=== PATIENT | male | born 1960 | race Two or more races ===

== ENCOUNTER 2018-02-14 19:08 | Inpatient (IN) | payer BC ==
--- NOTE | 2018-02-14 20:00 | ED Physician Chart ---
ED Chief Complaint/HPI - Patient Information Date Seen:: 02/14/18 Time Seen:: 19:53 Chief Complaint:: Abdominal pain History of Present Illness:: 57 yo male developed LLQ abdominal pain 3 weeks ago. Patient went to outside ER and was given oral antibiotics for 1 week. The abdominal pain went away. About 2 days ago, patient started to have similar LLQ abdominal pain again. Patient denied fever, nausea, vomiting, diarrhea or bloody stool. Patient presented to ER due to worsening abdominal pain today. Allergies:: Allergies Allergy/AdvReac Type Severity Reaction Status Date / Time No Known Allergies Allergy Verified 02/14/18 19:30 Vitals:: Vital Signs - 8 hr 02/14/18 19:10 Temp 97.8 F HR 61 RR 18 BP 161/107 O2 Sat % 95 ED Review of Systems - Review of Systems General/Constitutional: No fever, No chills Skin: No rash Head: No headache Eyes: No pain ENT: No nasal drainage Neck: No neck pain Cardio Vascular: No chest pain Pulmonary: No SOB GI: No nausea, No vomiting, No diarrhea, Pain Musculoskeletal: No bone or joint pain Neurological: No focal symptoms ED Past Medical History - Past Medical History Past Medical History: DM (pre-DM) Social History: Non Smoker, No Alcohol, No Drug Use Surgical History: None Family Medical History - Family Member Father Other Medical History: HIGH CHOLESTEROL ED Physical Exam - Physical Examination General/Constitutional: Awake Head: Atraumatic Eyes: PERRL Skin: No skin lesions ENMT: Nasal exam nl Neck: No nuchal rigidity Respiratory: No Wheeze/Rhonchi/Rales Cardio Vascular: RRR, No murmur, gallop, rubs, NL S1 S2 GI: Nondistended, No mass/bruits Other GI comments:: LLQ tenderness Extremities: normal strength in all extremities Neuro/Psych: No focal deficits ED Labs/Radiology/EKG Results - Lab Results Results: Laboratory Last Values WBC 11.7 Th/cmm (4.8-10.8) H 02/14/18 20:07 RBC 4.56 Mil/cmm (4.30-5.70) 02/14/18 20:07 Hgb 12.9 gm/dL (12-16) 02/14/18 20:07 Hct 38.8 % (41.0-60) L 02/14/18 20:07 MCV 85.2 fl (80-99) 02/14/18 20:07 MCH 28.4 pg (26.0-30.0) 02/14/18 20:07 MCHC Differential 33.3 pg (28.0-36.0) 02/14/18 20:07 RDW 12.9 % (11.5-20.0) 02/14/18 20:07 Plt Count 278 Th/cmm (150-400) 02/14/18 20:07 MPV 7.2 fl 02/14/18 20:07 Neutrophils % 64.2 % (40.0-80.0) 02/14/18 20:07 Lymphocytes % 22.1 % (20.0-50.0) 02/14/18 20:07 Monocytes % 8.4 % (2.0-10.0) 02/14/18 20:07 Eosinophils % 1.5 % (0.0-5.0) 02/14/18 20:07 Basophils % 3.8 % (0.0-2.0) H 02/14/18 20:07 Sodium 136 mEq/L (136-145) 02/14/18 20:07 Potassium 4.0 mEq/L (3.5-5.1) 02/14/18 20:07 Chloride 103 mEq/L (98-107) 02/14/18 20:07 Carbon Dioxide 24.5 mEq/L (21.0-31.0) 02/14/18 20:07 Anion Gap 12.5 (7.0-16.0) 02/14/18 20:07 BUN 22 mg/dL (7-25) 02/14/18 20:07 Creatinine 1.0 mg/dL (0.7-1.3) 02/14/18 20:07 Est GFR ( Amer) > 60.0 ml/min (>90) 02/14/18 20:07 Est GFR (Non-Af Amer) > 60.0 ml/min 02/14/18 20:07 BUN/Creatinine Ratio 22.0 02/14/18 20:07 Glucose 116 mg/dL (70-105) H 02/14/18 20:07 Calcium 9.4 mg/dL (8.6-10.3) 02/14/18 20:07 Total Bilirubin 0.6 mg/dL (0.3-1.0) 02/14/18 20:07 AST 24 U/L (13-39) 02/14/18 20:07 ALT 35 U/L (7-52) 02/14/18 20:07 Alkaline Phosphatase 86 U/L (34-104) 02/14/18 20:07 Total Protein 6.9 gm/dL (6.0-8.3) 02/14/18 20:07 Albumin 4.0 gm/dL (4.2-5.5) L 02/14/18 20:07 Globulin 2.9 gm/dL 02/14/18 20:07 Albumin/Globulin Ratio 1.4 (1.0-1.8) 02/14/18 20:07 Amylase 50 U/L (29-103) 02/14/18 20:07 Lipase 24 U/L (11-82) 02/14/18 20:07 Urine Source CLEAN C 02/14/18 19:30 Urine Color YELLOW 02/14/18 19:30 Urine Clarity CLEAR (CLEAR) 02/14/18 19:30 Urine pH 6.0 (4.6 - 8.0) 02/14/18 19:30 Ur Specific [place] >= 1.030 (1.005-1.030) 02/14/18 19:30 Urine Protein TRACE mg/dL (NEGATIVE) 02/14/18 19:30 Urine Glucose (UA) NEGATIVE mg/dL (NEGATIVE) 02/14/18 19:30 Urine Ketones TRACE mg/dL (NEGATIVE) 02/14/18 19:30 Urine Blood TRACE (NEGATIVE) 02/14/18 19:30 Urine Nitrate NEGATIVE (NEGATIVE) 02/14/18 19:30 Urine Bilirubin SMALL (NEGATIVE) H 02/14/18 19:30 Urine Urobilinogen 0.2 E.U./dL (0.2 - 1.0) 02/14/18 19:30 Ur Leukocyte Esterase NEGATIVE (NEGATIVE) 02/14/18 19:30 Urine RBC 2-5 /hpf (0-5) H 02/14/18 19:30 Urine WBC 0-2 /hpf (0-5) 02/14/18 19:30 Ur Epithelial Cells FEW /lpf (FEW) 02/14/18 19:30 Amorphous Sediment MODERATE URATES (NONE SEEN) 02/14/18 19:30 Urine Bacteria FEW /hpf (NONE SEEN) 02/14/18 19:30 - Radiology Results Results: CT abdomen/pelvis with IV contrast: sigmoid colon diverticulosis with inflammatory changes, trace surrounding fluid, 4.1x2.9x4.0 cm peridiverticular abscess in the left pelvis - EKG Interpretations EKG Time:: 20:23 Rate & Rhythm: 54 bpm, sinus rhythm [place]: normal P axis Intervals: [place] 208, QRS 103 Comments:: Left axis deviation, no ST, T changes, borderline EKG ED Assessment - Assessment General Assessment: Diverticulitis Peridiverticular abscess Leukocytosis Hypertension Assessment/Comments:: CBC, CMP, lipase, amylase, UA CT abdomen/pelvis with IV contrast Zosyn Flagyl NS 1L IV bolus Admit to med surg for further evaluation and management ED Septic Shock - . Is Septic Shock (SBP<90, OR Lactate>4 mmol\L) present?: No - <6hrs of presentation: Vital Signs: Vital Signs - 8 hr 02/14/18 19:10 Temp 97.8 F HR 61 RR 18 BP 161/107 O2 Sat % 95 ED Reassessment (Disposition) - Reassessment Reassessment Condition:: Improved - Patient Disposition Discharge/Transfer:: Acute Care w/in this hosp Admitting Medical Physician:: Cristhian Walker
[2018-02-14 20:15] LABS: % BASOPHILS 3.8 % (0.0-2.0); % EOSINOPHILS 1.5 % (0.0-5.0); % LYMPHOCYTES 22.1 % (20.0-50.0); % MONOCYTES 8.4 % (2.0-10.0); % NEUTROPHILS 64.2 % (40.0-80.0); BASOPHILE ABSOLUTE 0.4 Th/cumm (0-0.2); EOSINOPHILE ABSOLUTE 0.2 Th/cmm (0.1-0.4); HEMATOCRIT 38.8 % (41.0-60); HEMOGLOBIN 12.9 gm/dL (12-16); LYMPHOCYTE ABSOLUTE 2.6 Th/cmm (1.5-3.0); MEAN CELL VOLUME 85.2 fl (80-99); MEAN CORPUSCULAR HEMOGLOBIN 28.4 pg (26.0-30.0); MEAN CORPUSCULAR HGB CONC 33.3 pg (28.0-36.0); MEAN PLATELET VOLUME 7.2 fl; NEUTROPHILE ABSOLUTE 7.5 Th/cmm (1.8-8.0); PLATELET COUNT 278 Th/cmm (150-400); RED BLOOD COUNT 4.56 Mil/cmm (4.30-5.70); RED CELL DISTRIBUTION WIDTH 12.9 % (11.5-20.0); WHITE BLOOD COUNT 11.7 Th/cmm (4.8-10.8)
[2018-02-14 20:23] LABS: URINE SOURCE CLEAN C
[2018-02-14 20:27] LABS: URINE BILIRUBIN SMALL (NEGATIVE); URINE BLOOD TRACE (NEGATIVE); URINE GLUCOSE (UA) NEGATIVE (NEGATIVE); URINE KETONE TRACE mg/dL (NEGATIVE); URINE LEUKOCYTE ESTERASE NEGATIVE (NEGATIVE); URINE MICROSCOPIC INDICATED? YES; URINE NITRATE NEGATIVE (NEGATIVE); URINE PROTEIN TRACE mg/dL (NEGATIVE); URINE UROBILINOGEN 0.2 E.U./dL (0.2 - 1.0)
[2018-02-14 20:28] LABS: URINE CLARITY CLEAR (CLEAR); URINE COLOR YELLOW
[2018-02-14 20:30] LABS: URINE BACTERIA FEW /hpf (NONE SEEN); URINE EPITHELIAL CELLS FEW /lpf (FEW); URINE WBC 0-2 /hpf (0-5)
[2018-02-14 20:31] LABS: URINE AMORPHOUS SEDIMENT MODERATE URATES (NONE SEEN)
[2018-02-14 21:16] LABS: AMYLASE SERUM 50 U/L (29-103); LIPASE 24 U/L (11-82)
[2018-02-14 21:21] LABS: ALB/GLOB RATIO 1.4 (1.0-1.8); ALKALINE PHOSPHATASE 86 U/L (34-104); ANION GAP 12.5 (7.0-16.0); BILIRUBIN,TOTAL 0.6 mg/dL (0.3-1.0); BUN - UREA NITROGEN 22 mg/dL (7-25); CALCIUM SERUM 9.4 mg/dL (8.6-10.3); CARBON DIOXIDE 24.5 mEq/L (21.0-31.0); CHLORIDE 103 mEq/L (98-107); GFR AFRICAN-AMERICAN > 60.0 ml/min (>90); GFR NON AFRICAN-AMERICAN > 60.0 ml/min; GLUCOSE 116 mg/dL (70-105); SGOT 24 U/L (13-39); SGPT/ALT 35 U/L (7-52); SODIUM SERUM 136 mEq/L (136-145); TOTAL PROTEIN,SERUM 6.9 gm/dL (6.0-8.3)
[2018-02-14] MEDS ORDERED: IOHEXOL 300mgI/mL 100 ML VIAL ONE (21:38)
[2018-02-14] MEDS ORDERED: metroNIDAZOLE 500mg/NS 100mL 500 MG/100 ML BAG IV ONE ×2 (22:07→22:24)
[2018-02-14] MEDS ORDERED: Piperacillin Sodium/Tazobact 3.375 gm Vial IV ONE (22:24)
[2018-02-14] MEDS ORDERED: Sodium Chloride 0.9% 1,000 ML IV ONE (22:45)
[2018-02-14 23:47] LABS: INR 0.99 (0.5-1.4); PROTHROMBIN TIME (TEST) 10.3 SECONDS (9.5-11.5)
[2018-02-15 01:21] VITALS: BP 132/87
[2018-02-15] MEDS: D5-0.45NS 1,000 ML IV SCH (01:25)
[2018-02-15] MEDS ORDERED: Piperacillin Sodium/Tazobact 3.375 gm Vial IV ONE (04:33)
[2018-02-15] MEDS: Morphine Sulfate 2 mg/mL 1mL Syr IVP PRN ×2 (04:49→12:16)
[2018-02-15] MEDS: metroNIDAZOLE 500mg/NS 100mL 500 MG/100 ML BAG IV SCH ×3 (05:40→21:08)
[2018-02-15 06:33] LABS: % BASOPHILS 0.3 % (0.0-2.0); % EOSINOPHILS 1.4 % (0.0-5.0); % LYMPHOCYTES 13.7 % (20.0-50.0); % MONOCYTES 8.2 % (2.0-10.0); % NEUTROPHILS 76.4 % (40.0-80.0); EOSINOPHILE ABSOLUTE 0.1 Th/cmm (0.1-0.4); HEMOGLOBIN 12.6 gm/dL (12-16); LYMPHOCYTE ABSOLUTE 1.4 Th/cmm (1.5-3.0); MEAN CELL VOLUME 85.1 fl (80-99); MEAN CORPUSCULAR HEMOGLOBIN 29.1 pg (26.0-30.0); MEAN CORPUSCULAR HGB CONC 34.2 pg (28.0-36.0); MEAN PLATELET VOLUME 7.6 fl; MONOCYTE ABSOLUTE 0.9 Th/cmm (0.3-1.0); PLATELET COUNT 260 Th/cmm (150-400); RED BLOOD COUNT 4.35 Mil/cmm (4.30-5.70); RED CELL DISTRIBUTION WIDTH 12.9 % (11.5-20.0); WHITE BLOOD COUNT 10.4 Th/cmm (4.8-10.8)
[2018-02-15 06:45] LABS: ALB/GLOB RATIO 1.3 (1.0-1.8); ALBUMIN 3.6 gm/dL (4.2-5.5); ALKALINE PHOSPHATASE 79 U/L (34-104); BILIRUBIN,TOTAL 0.8 mg/dL (0.3-1.0); BUN - UREA NITROGEN 15 mg/dL (7-25); CALCIUM SERUM 8.9 mg/dL (8.6-10.3); CARBON DIOXIDE 24.6 mEq/L (21.0-31.0); CHLORIDE 105 mEq/L (98-107); CREATININE - SERUM 0.8 mg/dL (0.7-1.3); GFR AFRICAN-AMERICAN > 60.0 ml/min (>90); GFR NON AFRICAN-AMERICAN > 60.0 ml/min; GLUCOSE 110 mg/dL (70-105); POTASSIUM SERUM 3.6 mEq/L (3.5-5.1); SGOT 20 U/L (13-39); SGPT/ALT 32 U/L (7-52); SODIUM SERUM 137 mEq/L (136-145); TOTAL PROTEIN,SERUM 6.3 gm/dL (6.0-8.3)
--- NOTE | 2018-02-15 07:49 | Diagnostic Imaging Report ---
CT scan abdomen and pelvis with intravenous contrast HISTORY: Pain Total DLP equals 645 CTDI equals 12.7 Axial sections were obtained from the xiphoid process down to the pubic symphysis following administration of intravenous contrast. No focal hepatic lesions are seen. The spleen appears normal. No abnormalities are seen in the region of the pancreas. Right kidney appears normal. A subcentimeter cyst seen in the lateral cortex of the left kidney. There is a minimal fat-containing umbilical hernia. The exam of the pelvis demonstrates numerous diverticula along the sigmoid colon with haziness of the pericolonic fat. Findings consistent with inflammatory change (diverticulitis). There is an approximate 4.0 cm round collection associated with a small air-fluid level. Findings suggest abscess formation. No other abnormal masses. No free fluid within the pelvis. IMPRESSION: 1. Findings consistent with diverticulitis along the sigmoid colon associated with small abscess formation as noted above. 2. Minimal fat-containing umbilical hernia
--- NOTE | 2018-02-15 08:23 | History and Physical ---
History of Present Illness - HPI Chief Complaint: LLQ abdominal Pain HPI: 57 yo male who presents to [facility] ER with LLQ abdominal pain for 3 weeks. Patient underwent a CT abd/pelvis which revealed evidence of diverticulitis and possible abscess formation adjacent to the sigmoid colon. Patient was subsequently admitted for continued care and treatment. Abdominal pain has been coming and going for the past 3 weeks. Recently his pain return 2 days prior to admission with pain to the LLQ region. Patient denies fever, nausea, vomiting, diarrhea or bloody stool. Patient presented to ER due to worsening abdominal pain today. Vital Signs: Last Vital Signs Temp 97.7 F 02/15/18 04:00 Pulse 57 02/15/18 04:00 Resp 18 02/15/18 04:00 BP 124/75 02/15/18 04:00 Pulse Ox 99 02/15/18 04:00 Past Medical History Cardiovascular: Report: No Pertinent Hx Pulmonary: Report: No Pertinent Hx GEOSPATIAL INFORMATION SCIENTIST: Report: No Pertinent Hx GI: Report: Other (LLQ abdominal Pain) Psych: Report: No Pertinent Hx Musculoskeletal: Report: No Pertinent Hx Rheumatologic: Report: No pertinent Hx Infectious Disease: Report: No Pertinent Hx Renal/: Report: No Pertinent Hx Endocrine: Report: No Pertinent Hx Dermatology: Report: No Pertinent Hx - Past Surgical History Past Surgical History: No pertinent Hx Family Medical History - Family Member Father Ethnicity: Living Status: Hx Family Hypertension: Yes Other Medical History: Hyperlipidemia Social History Smoke: No Alcohol: None Drugs: None Lives: With Family - Allergies Allergies/Adverse Reactions: Allergies Allergy/AdvReac Type Severity Reaction Status Date / Time No Known Allergies Allergy Verified 02/14/18 19:30 Review of Systems - Review of Systems Constitutional: Report: No Significant Eyes: Report: No Significant ENT: Report: No Significant Respiratory: Report: No Significant Cardiovascular: Report: No Significant Gastrointestinal: Report: Abdominal Pain. Denies: Nausea, Vomiting, Diarrhea, Constipation Genitourinary: Report: No Significant Musculoskeletal: Report: No Significant Skin: Report: No Significant Neurological: Report: No Significant Physical Exam - Physical Exam HEENT: Report: Ears Nose Throat within normal limits, Pharnyx within normal limits Neck: Report: Within normal limits Cardiovascular Systems: Report: +s1/s2 noted, Regular, Rate and Rhythm Respiratory: Report: Breath Sounds are within normal limits Abdomen: Report: Tender to palpation (LLQ pain) Back: Report: Inspection of back is within normal limits. Extremities: Report: Non-tender to palpation. Skin: Report: Color of skin is within normal limits Neuro/Psych: Report: Mood affect is within normal limits, A+Ox3 - Lab Results All Lab Results last 24 hours: Laboratory Results - last 24 hr 02/14/18 02/14/18 02/14/18 19:30 19:30 19:30 WBC RBC Hgb Hct MCV MCH MCHC Differential RDW Plt Count MPV Neutrophils % Lymphocytes % Monocytes % Eosinophils % Basophils % PT 10.3 INR 0.99 PTT (Actin FS) 31.2 Sodium Potassium Chloride Carbon Dioxide Anion Gap BUN Creatinine Est GFR ( Amer) Est GFR (Non-Af Amer) BUN/Creatinine Ratio Glucose POC Glucose Whole Bld Lactic Acid 0.53 L Calcium Total Bilirubin AST ALT Alkaline Phosphatase Total Protein Albumin Globulin Albumin/Globulin Ratio Amylase Lipase Urine Source CLEAN C Urine Color YELLOW Urine Clarity CLEAR Urine pH 6.0 Ur Specific [place] >= 1.030 Urine Protein TRACE Urine Glucose (UA) NEGATIVE Urine Ketones TRACE Urine Blood TRACE Urine Nitrate NEGATIVE Urine Bilirubin SMALL H Urine Urobilinogen 0.2 Ur Leukocyte Esterase NEGATIVE Urine RBC 2-5 H Urine WBC 0-2 Ur Epithelial Cells FEW Amorphous Sediment MODERATE URATES Urine Bacteria FEW 02/14/18 02/14/18 02/14/18 20:07 20:07 20:07 WBC 11.7 H RBC 4.56 Hgb 12.9 Hct 38.8 L MCV 85.2 MCH 28.4 MCHC Differential 33.3 RDW 12.9 Plt Count 278 MPV 7.2 Neutrophils % 64.2 Lymphocytes % 22.1 Monocytes % 8.4 Eosinophils % 1.5 Basophils % 3.8 H PT INR PTT (Actin FS) Sodium 136 Potassium 4.0 Chloride 103 Carbon Dioxide 24.5 Anion Gap 12.5 BUN 22 Creatinine 1.0 Est GFR ( Amer) > 60.0 Est GFR (Non-Af Amer) > 60.0 BUN/Creatinine Ratio 22.0 Glucose 116 H POC Glucose Whole Bld Lactic Acid Calcium 9.4 Total Bilirubin 0.6 AST 24 ALT 35 Alkaline Phosphatase 86 Total Protein 6.9 Albumin 4.0 L Globulin 2.9 Albumin/Globulin Ratio 1.4 Amylase 50 Lipase 24 Urine Source Urine Color Urine Clarity Urine pH Ur Specific [place] Urine Protein Urine Glucose (UA) Urine Ketones Urine Blood Urine Nitrate Urine Bilirubin Urine Urobilinogen Ur Leukocyte Esterase Urine RBC Urine WBC Ur Epithelial Cells Amorphous Sediment Urine Bacteria 02/15/18 02/15/18 02/15/18 00:58 05:48 05:48 WBC 10.4 RBC 4.35 Hgb 12.6 Hct 37.0 L MCV 85.1 MCH 29.1 MCHC Differential 34.2 RDW 12.9 Plt Count 260 MPV 7.6 Neutrophils % 76.4 Lymphocytes % 13.7 L Monocytes % 8.2 Eosinophils % 1.4 Basophils % 0.3 PT INR PTT (Actin FS) Sodium 137 Potassium 3.6 Chloride 105 Carbon Dioxide 24.6 Anion Gap 11.0 BUN 15 Creatinine 0.8 Est GFR ( Amer) > 60.0 Est GFR (Non-Af Amer) > 60.0 BUN/Creatinine Ratio 18.8 Glucose 110 H POC Glucose 103 Whole Bld Lactic Acid Calcium 8.9 Total Bilirubin 0.8 AST 20 ALT 32 Alkaline Phosphatase 79 Total Protein 6.3 Albumin 3.6 L Globulin 2.7 Albumin/Globulin Ratio 1.3 Amylase Lipase Urine Source Urine Color Urine Clarity Urine pH Ur Specific [place] Urine Protein Urine Glucose (UA) Urine Ketones Urine Blood Urine Nitrate Urine Bilirubin Urine Urobilinogen Ur Leukocyte Esterase Urine RBC Urine WBC Ur Epithelial Cells Amorphous Sediment Urine Bacteria - Assessment Assessment: LLQ abdominal pain Diverticulitis possible abscess to the sigmoid region - Plan Plan: GI consult General Surgery consult Continue IV antibiotics Keep NPO continue IV fluids repeat CBC, CMP
--- NOTE | 2018-02-15 13:54 | General Progress Note ---
Subjective - Review of Systems Service Date: 02/15/18 Events since last encounter: consult dictated CT possible diverticular abscess, sigmoid plan: observe, keep NPO Objective - Results Result Diagrams: 02/15/18 05:48 02/15/18 05:48 Recent Labs: Laboratory Last Values WBC 10.4 Th/cmm (4.8-10.8) 02/15/18 05:48 RBC 4.35 Mil/cmm (4.30-5.70) 02/15/18 05:48 Hgb 12.6 gm/dL (12-16) 02/15/18 05:48 Hct 37.0 % (41.0-60) L 02/15/18 05:48 MCV 85.1 fl (80-99) 02/15/18 05:48 MCH 29.1 pg (26.0-30.0) 02/15/18 05:48 MCHC Differential 34.2 pg (28.0-36.0) 02/15/18 05:48 RDW 12.9 % (11.5-20.0) 02/15/18 05:48 Plt Count 260 Th/cmm (150-400) 02/15/18 05:48 MPV 7.6 fl 02/15/18 05:48 Neutrophils % 76.4 % (40.0-80.0) 02/15/18 05:48 Lymphocytes % 13.7 % (20.0-50.0) L 02/15/18 05:48 Monocytes % 8.2 % (2.0-10.0) 02/15/18 05:48 Eosinophils % 1.4 % (0.0-5.0) 02/15/18 05:48 Basophils % 0.3 % (0.0-2.0) 02/15/18 05:48 PT 10.3 SECONDS (9.5-11.5) 02/14/18 19:30 INR 0.99 (0.5-1.4) 02/14/18 19:30 PTT (Actin FS) 31.2 SECONDS (26.0-38.0) 02/14/18 19:30 Sodium 137 mEq/L (136-145) 02/15/18 05:48 Potassium 3.6 mEq/L (3.5-5.1) 02/15/18 05:48 Chloride 105 mEq/L (98-107) 02/15/18 05:48 Carbon Dioxide 24.6 mEq/L (21.0-31.0) 02/15/18 05:48 Anion Gap 11.0 (7.0-16.0) 02/15/18 05:48 BUN 15 mg/dL (7-25) 02/15/18 05:48 Creatinine 0.8 mg/dL (0.7-1.3) 02/15/18 05:48 Est GFR ( Amer) > 60.0 ml/min (>90) 02/15/18 05:48 Est GFR (Non-Af Amer) > 60.0 ml/min 02/15/18 05:48 BUN/Creatinine Ratio 18.8 02/15/18 05:48 Glucose 110 mg/dL (70-105) H 02/15/18 05:48 POC Glucose 103 MG/DL (70 - 105) 02/15/18 00:58 Whole Bld Lactic Acid 0.53 mmol/L (0.60-1.99) L 02/14/18 19:30 Calcium 8.9 mg/dL (8.6-10.3) 02/15/18 05:48 Total Bilirubin 0.8 mg/dL (0.3-1.0) 02/15/18 05:48 AST 20 U/L (13-39) 02/15/18 05:48 ALT 32 U/L (7-52) 02/15/18 05:48 Alkaline Phosphatase 79 U/L (34-104) 02/15/18 05:48 Total Protein 6.3 gm/dL (6.0-8.3) 02/15/18 05:48 Albumin 3.6 gm/dL (4.2-5.5) L 02/15/18 05:48 Globulin 2.7 gm/dL 02/15/18 05:48 Albumin/Globulin Ratio 1.3 (1.0-1.8) 02/15/18 05:48 Amylase 50 U/L (29-103) 02/14/18 20:07 Lipase 24 U/L (11-82) 02/14/18 20:07 Urine Source CLEAN C 02/14/18 19:30 Urine Color YELLOW 02/14/18 19:30 Urine Clarity CLEAR (CLEAR) 02/14/18 19:30 Urine pH 6.0 (4.6 - 8.0) 02/14/18 19:30 Ur Specific [place] >= 1.030 (1.005-1.030) 02/14/18 19:30 Urine Protein TRACE mg/dL (NEGATIVE) 02/14/18 19:30 Urine Glucose (UA) NEGATIVE mg/dL (NEGATIVE) 02/14/18 19:30 Urine Ketones TRACE mg/dL (NEGATIVE) 02/14/18 19:30 Urine Blood TRACE (NEGATIVE) 02/14/18 19:30 Urine Nitrate NEGATIVE (NEGATIVE) 02/14/18 19:30 Urine Bilirubin SMALL (NEGATIVE) H 02/14/18 19:30 Urine Urobilinogen 0.2 E.U./dL (0.2 - 1.0) 02/14/18 19:30 Ur Leukocyte Esterase NEGATIVE (NEGATIVE) 02/14/18 19:30 Urine RBC 2-5 /hpf (0-5) H 02/14/18 19:30 Urine WBC 0-2 /hpf (0-5) 02/14/18 19:30 Ur Epithelial Cells FEW /lpf (FEW) 02/14/18 19:30 Amorphous Sediment MODERATE URATES (NONE SEEN) 02/14/18 19:30 Urine Bacteria FEW /hpf (NONE SEEN) 02/14/18 19:30 - Physical Exam Vitals and I&O: Vital Signs Temp 98.2 F 02/15/18 12:00 Pulse 61 02/15/18 12:00 Resp 18 02/15/18 12:00 BP 115/78 02/15/18 12:00 Pulse Ox 96 02/15/18 12:00 Intake & Output 02/14/18 02/15/18 02/15/18 18:59 06:59 18:59 Intake Total 1250 100 Balance 1250 100 Weight (lbs) 92.986 kg Intake: Intake, IV Amount 1250 100 Piperacillin Sodium/ 50 Tazobact 3.375 gm In Sodium Chloride 0.9% 50 ml @ 100 mls/hr IV Q8HR JOSE [facility] Rx#:[id number] Piperacillin Sodium/ 50 Tazobact 3.375 gm In Sodium Chloride 0.9% 50 ml @ 100 mls/hr IV X1 ONE Rx#:[id number] metroNIDAZOLE 500mg/NS 100 100mL 500 mg In 100 ml @ 100 mls/hr IV Q8HR [facility] Rx #:[id number] Other: # Voids 3 # Bowel Movements 1 Weight Source Bedscale Active Medications: Current Medications Dextrose/Sodium Chloride (D5-0.45ns) 1,000 mls @ 50 mls/hr IV .Q20H [facility] Stop: 04/16/18 01:14 Last Admin: 02/15/18 01:25 Dose: 50 mls/hr Metronidazole (Flagyl) 500 mg in 100 mls @ 100 mls/hr IV Q8HR [facility] Stop: 04/16/18 04:59 Last Admin: 02/15/18 12:18 Dose: 100 mls/hr Piperacillin Sod/Tazobactam (Sod 3.375 gm/ Sodium Chloride) 50 mls @ 100 mls/ hr IV Q8HR [facility] Stop: 04/16/18 04:59 Last Admin: 02/15/18 12:16 Dose: 100 mls/hr Morphine Sulfate (Morphine) 2 mg IVP Q6HR PRN PRN Reason: Pain (Severe) 8-10 Stop: 04/16/18 00:54 Last Admin: 02/15/18 12:16 Dose: 2 mg Ondansetron HCl (Zofran) 4 mg IV Q6H PRN PRN Reason: Nausea / Vomiting Stop: 04/16/18 00:54
--- NOTE | 2018-02-15 15:56 | Consultation ---
DATE OF CONSULTATION: 02/15/2018 SURGICAL CONSULTATION REFERRING PHYSICIAN: Dr. Walker. REASON FOR CONSULTATION: Abdominal pain. Thank you for referring this patient to me. HISTORY OF PRESENT ILLNESS: This is a 57-year-old male who apparently had a similar type pain about a month ago and he went to the urgent care center and was given medication. Pain started again 2 days ago in the left lower quadrant of the abdomen. He claimed he had some dysuria associated with this. He does not admit to nausea, vomiting, or bloody diarrhea. LABORATORY STUDIES: Show slight WBC elevation, but no shift. Chemistries are within normal limits. The patient underwent CT scan of the abdomen and this showed diverticulitis of the sigmoid colon with possible abscess formation. PHYSICAL EXAMINATION: Tenderness in the left lower quadrant of the abdomen with some rebound, which is minimal. IMPRESSION: Diverticulitis with possible abscess. RECOMMENDATIONS: For now, we will keep the patient n.p.o. and observe further. This is not a surgical indication at this point for intervention. JOB# [id number]
--- NOTE | 2018-02-15 23:21 | Consultation ---
DATE OF CONSULTATION: 02/15/2018 REQUESTING PHYSICIAN: Cristhian Walker M.D. REASON FOR CONSULTATION: Left lower quadrant abdominal pain. HISTORY OF PRESENT ILLNESS: A 57-year-old male with no significant past medical history who initially had left lower quadrant pain about a month ago. He was seen by his primary care physician and prescribed antibiotics for 1 week's duration. This resolved the symptoms; however, the symptoms came back 3 days ago with recurrence of left lower quadrant pain. He had some dark urine yesterday that cleared today. On admission here, he had leukocytosis and CT imaging that suggested diverticulitis with possible small abscess formation. He has never had a previous colonoscopy. He denies rectal bleeding. PAST MEDICAL HISTORY: As above. MEDICATIONS: Here are IV fluids, Zofran, Flagyl, Zosyn, morphine. ALLERGIES: No known drug allergies. SOCIAL HISTORY: No recent tobacco, alcohol or drugs. FAMILY HISTORY: Noncontributory. REVIEW OF SYSTEMS: Negative. PHYSICAL EXAMINATION: VITAL SIGNS: Temperature of 98.2, blood pressure is 115/78, pulse of 61, respirations 18, O2 sat is 96%. GENERAL: The patient is well-developed, well-nourished male in no acute distress. HEENT: Sclerae anicteric. Oropharynx is clear. CARDIOVASCULAR: Regular rate and rhythm. LUNGS: Clear to auscultation bilaterally. ABDOMEN: Soft, mild left lower quadrant tenderness to palpation with mild fullness. EXTREMITIES: No clubbing, cyanosis or edema. RECTAL: Deferred. LABORATORY DATA: Initial WBC 11.7 down to 10.4 now, hemoglobin 12.6, platelet count is 260, creatinine is 0.8. Liver enzymes normal. Urinalysis shows 2-5 rbc's and 0-2 wbc's with few bacteria. IMPRESSION: Left lower quadrant pain with leukocytosis. CT findings also noted. The patient most likely has diverticulitis with possible localized perforation and abscess formation, less likely ischemic or other type of colitis or occult neoplasm. RECOMMENDATIONS: 1. IV antibiotics. 2. N.p.o. status. 3. Monitor labs. 4. Consider repeat CT imaging in a couple of days to assess for abscess resolution. Once this has occurred, then we will start oral diet and advance as tolerated. 5. May give PPN in the meantime. 6. Outpatient elective colonoscopy likely in 4-6 weeks' time. The patient already has an appointment to see a GI doctor next week. 7. Consider surgical evaluation if patient fails medical management for his diverticular disease. Thank you, Dr. Cristhian Walker for involving us in the care of your patient. If you have any further questions, please call us. JOB# [id number]
[2018-02-16] MEDS: D5-0.45NS 1,000 ML IV SCH (01:35)
[2018-02-16] MEDS: metroNIDAZOLE 500mg/NS 100mL 500 MG/100 ML BAG IV SCH ×3 (05:14→21:50)
[2018-02-16 06:30] LABS: % BASOPHILS 0.7 % (0.0-2.0); % EOSINOPHILS 1.3 % (0.0-5.0); % LYMPHOCYTES 13.6 % (20.0-50.0); % MONOCYTES 8.4 % (2.0-10.0); BASOPHILE ABSOLUTE 0.1 Th/cumm (0-0.2); EOSINOPHILE ABSOLUTE 0.1 Th/cmm (0.1-0.4); HEMATOCRIT 38.2 % (41.0-60); HEMOGLOBIN 12.7 gm/dL (12-16); LYMPHOCYTE ABSOLUTE 1.4 Th/cmm (1.5-3.0); MEAN CELL VOLUME 86.1 fl (80-99); MEAN CORPUSCULAR HEMOGLOBIN 28.6 pg (26.0-30.0); MEAN CORPUSCULAR HGB CONC 33.2 pg (28.0-36.0); MEAN PLATELET VOLUME 7.4 fl; MONOCYTE ABSOLUTE 0.9 Th/cmm (0.3-1.0); NEUTROPHILE ABSOLUTE 7.7 Th/cmm (1.8-8.0); PLATELET COUNT 305 Th/cmm (150-400); RED BLOOD COUNT 4.43 Mil/cmm (4.30-5.70); RED CELL DISTRIBUTION WIDTH 12.3 % (11.5-20.0); WHITE BLOOD COUNT 10.2 Th/cmm (4.8-10.8)
[2018-02-16 06:55] LABS: ANION GAP 11.7 (7.0-16.0); BUN - UREA NITROGEN 15 mg/dL (7-25); CALCIUM SERUM 8.9 mg/dL (8.6-10.3); CARBON DIOXIDE 24.9 mEq/L (21.0-31.0); CHLORIDE 103 mEq/L (98-107); CREATININE - SERUM 0.9 mg/dL (0.7-1.3); GFR AFRICAN-AMERICAN > 60.0 ml/min (>90); GFR NON AFRICAN-AMERICAN > 60.0 ml/min; GLUCOSE 109 mg/dL (70-105); POTASSIUM SERUM 3.6 mEq/L (3.5-5.1); SODIUM SERUM 136 mEq/L (136-145)
--- NOTE | 2018-02-16 08:13 | General Progress Note ---
Subjective - Review of Systems Service Date: 02/16/18 Events since last encounter: less pain labs ok start clear liquids Objective - Results Result Diagrams: 02/16/18 05:50 02/16/18 05:50 Recent Labs: Laboratory Last Values WBC 10.2 Th/cmm (4.8-10.8) 02/16/18 05:50 RBC 4.43 Mil/cmm (4.30-5.70) 02/16/18 05:50 Hgb 12.7 gm/dL (12-16) 02/16/18 05:50 Hct 38.2 % (41.0-60) L 02/16/18 05:50 MCV 86.1 fl (80-99) 02/16/18 05:50 MCH 28.6 pg (26.0-30.0) 02/16/18 05:50 MCHC Differential 33.2 pg (28.0-36.0) 02/16/18 05:50 RDW 12.3 % (11.5-20.0) 02/16/18 05:50 Plt Count 305 Th/cmm (150-400) 02/16/18 05:50 MPV 7.4 fl 02/16/18 05:50 Neutrophils % 76.0 % (40.0-80.0) 02/16/18 05:50 Lymphocytes % 13.6 % (20.0-50.0) L 02/16/18 05:50 Monocytes % 8.4 % (2.0-10.0) 02/16/18 05:50 Eosinophils % 1.3 % (0.0-5.0) 02/16/18 05:50 Basophils % 0.7 % (0.0-2.0) 02/16/18 05:50 PT 10.3 SECONDS (9.5-11.5) 02/14/18 19:30 INR 0.99 (0.5-1.4) 02/14/18 19:30 PTT (Actin FS) 31.2 SECONDS (26.0-38.0) 02/14/18 19:30 Sodium 136 mEq/L (136-145) 02/16/18 05:50 Potassium 3.6 mEq/L (3.5-5.1) 02/16/18 05:50 Chloride 103 mEq/L (98-107) 02/16/18 05:50 Carbon Dioxide 24.9 mEq/L (21.0-31.0) 02/16/18 05:50 Anion Gap 11.7 (7.0-16.0) 02/16/18 05:50 BUN 15 mg/dL (7-25) 02/16/18 05:50 Creatinine 0.9 mg/dL (0.7-1.3) 02/16/18 05:50 Est GFR ( Amer) > 60.0 ml/min (>90) 02/16/18 05:50 Est GFR (Non-Af Amer) > 60.0 ml/min 02/16/18 05:50 BUN/Creatinine Ratio 16.7 02/16/18 05:50 Glucose 109 mg/dL (70-105) H 02/16/18 05:50 POC Glucose 103 MG/DL (70 - 105) 02/15/18 00:58 Whole Bld Lactic Acid 0.53 mmol/L (0.60-1.99) L 02/14/18 19:30 Calcium 8.9 mg/dL (8.6-10.3) 02/16/18 05:50 Total Bilirubin 0.8 mg/dL (0.3-1.0) 02/15/18 05:48 AST 20 U/L (13-39) 02/15/18 05:48 ALT 32 U/L (7-52) 02/15/18 05:48 Alkaline Phosphatase 79 U/L (34-104) 02/15/18 05:48 Total Protein 6.3 gm/dL (6.0-8.3) 02/15/18 05:48 Albumin 3.6 gm/dL (4.2-5.5) L 02/15/18 05:48 Globulin 2.7 gm/dL 02/15/18 05:48 Albumin/Globulin Ratio 1.3 (1.0-1.8) 02/15/18 05:48 Amylase 50 U/L (29-103) 02/14/18 20:07 Lipase 24 U/L (11-82) 02/14/18 20:07 Urine Source CLEAN C 02/14/18 19:30 Urine Color YELLOW 02/14/18 19:30 Urine Clarity CLEAR (CLEAR) 02/14/18 19:30 Urine pH 6.0 (4.6 - 8.0) 02/14/18 19:30 Ur Specific [place] >= 1.030 (1.005-1.030) 02/14/18 19:30 Urine Protein TRACE mg/dL (NEGATIVE) 02/14/18 19:30 Urine Glucose (UA) NEGATIVE mg/dL (NEGATIVE) 02/14/18 19:30 Urine Ketones TRACE mg/dL (NEGATIVE) 02/14/18 19:30 Urine Blood TRACE (NEGATIVE) 02/14/18 19:30 Urine Nitrate NEGATIVE (NEGATIVE) 02/14/18 19:30 Urine Bilirubin SMALL (NEGATIVE) H 02/14/18 19:30 Urine Urobilinogen 0.2 E.U./dL (0.2 - 1.0) 02/14/18 19:30 Ur Leukocyte Esterase NEGATIVE (NEGATIVE) 02/14/18 19:30 Urine RBC 2-5 /hpf (0-5) H 02/14/18 19:30 Urine WBC 0-2 /hpf (0-5) 02/14/18 19:30 Ur Epithelial Cells FEW /lpf (FEW) 02/14/18 19:30 Amorphous Sediment MODERATE URATES (NONE SEEN) 02/14/18 19:30 Urine Bacteria FEW /hpf (NONE SEEN) 02/14/18 19:30 - Physical Exam Vitals and I&O: Vital Signs Temp 97.2 F 02/16/18 04:00 Pulse 54 02/16/18 04:00 Resp 18 02/16/18 04:00 BP 131/87 02/16/18 04:00 Pulse Ox 97 02/16/18 04:00 Intake & Output 02/15/18 02/16/18 02/16/18 18:59 06:59 18:59 Intake Total 250 1200 Balance 250 1200 Weight (lbs) 92.986 kg 93.071 kg Intake: Intake, IV Amount 250 1200 D5-0.45NS 1,000 ml @ 50 1000 mls/hr IV .Q20H [facility] Rx#: [id number] Piperacillin Sodium/ 50 100 Tazobact 3.375 gm In Sodium Chloride 0.9% 50 ml @ 100 mls/hr IV Q8HR [facility] Rx#:[id number] metroNIDAZOLE 500mg/NS 200 100 100mL 500 mg In 100 ml @ 100 mls/hr IV Q8HR [facility] Rx #:[id number] Other: # Voids 3 3 # Bowel Movements 0 0 Stool Characteristics Formed Weight Source Bedscale Bedscale Active Medications: Current Medications Dextrose/Sodium Chloride (D5-0.45ns) 1,000 mls @ 50 mls/hr IV .Q20H [facility] Stop: 04/16/18 01:14 Last Admin: 02/16/18 01:35 Dose: 50 mls/hr Metronidazole (Flagyl) 500 mg in 100 mls @ 100 mls/hr IV Q8HR [facility] Stop: 04/16/18 04:59 Last Admin: 02/16/18 05:14 Dose: 100 mls/hr Piperacillin Sod/Tazobactam (Sod 3.375 gm/ Sodium Chloride) 50 mls @ 100 mls/ hr IV Q8HR [facility] Stop: 04/16/18 04:59 Last Infusion: 02/16/18 05:15 Dose: Infused Morphine Sulfate (Morphine) 2 mg IVP Q6HR PRN PRN Reason: Pain (Severe) 8-10 Stop: 04/16/18 00:54 Last Admin: 02/15/18 12:16 Dose: 2 mg Ondansetron HCl (Zofran) 4 mg IV Q6H PRN PRN Reason: Nausea / Vomiting Stop: 04/16/18 00:54
--- NOTE | 2018-02-16 08:28 | General Progress Note ---
Subjective - Review of Systems Service Date: 02/16/18 Subjective: Patient feeling better. abdominal pain improved from yesterday. Currently on clear liquids and tolerating diet. Patient complains of urinary frequency and urgency. Objective - Results Result Diagrams: 02/16/18 05:50 02/16/18 05:50 Recent Labs: Laboratory Last Values WBC 10.2 Th/cmm (4.8-10.8) 02/16/18 05:50 RBC 4.43 Mil/cmm (4.30-5.70) 02/16/18 05:50 Hgb 12.7 gm/dL (12-16) 02/16/18 05:50 Hct 38.2 % (41.0-60) L 02/16/18 05:50 MCV 86.1 fl (80-99) 02/16/18 05:50 MCH 28.6 pg (26.0-30.0) 02/16/18 05:50 MCHC Differential 33.2 pg (28.0-36.0) 02/16/18 05:50 RDW 12.3 % (11.5-20.0) 02/16/18 05:50 Plt Count 305 Th/cmm (150-400) 02/16/18 05:50 MPV 7.4 fl 02/16/18 05:50 Neutrophils % 76.0 % (40.0-80.0) 02/16/18 05:50 Lymphocytes % 13.6 % (20.0-50.0) L 02/16/18 05:50 Monocytes % 8.4 % (2.0-10.0) 02/16/18 05:50 Eosinophils % 1.3 % (0.0-5.0) 02/16/18 05:50 Basophils % 0.7 % (0.0-2.0) 02/16/18 05:50 PT 10.3 SECONDS (9.5-11.5) 02/14/18 19:30 INR 0.99 (0.5-1.4) 02/14/18 19:30 PTT (Actin FS) 31.2 SECONDS (26.0-38.0) 02/14/18 19:30 Sodium 136 mEq/L (136-145) 02/16/18 05:50 Potassium 3.6 mEq/L (3.5-5.1) 02/16/18 05:50 Chloride 103 mEq/L (98-107) 02/16/18 05:50 Carbon Dioxide 24.9 mEq/L (21.0-31.0) 02/16/18 05:50 Anion Gap 11.7 (7.0-16.0) 02/16/18 05:50 BUN 15 mg/dL (7-25) 02/16/18 05:50 Creatinine 0.9 mg/dL (0.7-1.3) 02/16/18 05:50 Est GFR ( Amer) > 60.0 ml/min (>90) 02/16/18 05:50 Est GFR (Non-Af Amer) > 60.0 ml/min 02/16/18 05:50 BUN/Creatinine Ratio 16.7 02/16/18 05:50 Glucose 109 mg/dL (70-105) H 02/16/18 05:50 POC Glucose 103 MG/DL (70 - 105) 02/15/18 00:58 Whole Bld Lactic Acid 0.53 mmol/L (0.60-1.99) L 02/14/18 19:30 Calcium 8.9 mg/dL (8.6-10.3) 02/16/18 05:50 Total Bilirubin 0.8 mg/dL (0.3-1.0) 02/15/18 05:48 AST 20 U/L (13-39) 02/15/18 05:48 ALT 32 U/L (7-52) 02/15/18 05:48 Alkaline Phosphatase 79 U/L (34-104) 02/15/18 05:48 Total Protein 6.3 gm/dL (6.0-8.3) 02/15/18 05:48 Albumin 3.6 gm/dL (4.2-5.5) L 02/15/18 05:48 Globulin 2.7 gm/dL 02/15/18 05:48 Albumin/Globulin Ratio 1.3 (1.0-1.8) 02/15/18 05:48 Amylase 50 U/L (29-103) 02/14/18 20:07 Lipase 24 U/L (11-82) 02/14/18 20:07 Urine Source CLEAN C 02/14/18 19:30 Urine Color YELLOW 02/14/18 19:30 Urine Clarity CLEAR (CLEAR) 02/14/18 19:30 Urine pH 6.0 (4.6 - 8.0) 02/14/18 19:30 Ur Specific [place] >= 1.030 (1.005-1.030) 02/14/18 19:30 Urine Protein TRACE mg/dL (NEGATIVE) 02/14/18 19:30 Urine Glucose (UA) NEGATIVE mg/dL (NEGATIVE) 02/14/18 19:30 Urine Ketones TRACE mg/dL (NEGATIVE) 02/14/18 19:30 Urine Blood TRACE (NEGATIVE) 02/14/18 19:30 Urine Nitrate NEGATIVE (NEGATIVE) 02/14/18 19:30 Urine Bilirubin SMALL (NEGATIVE) H 02/14/18 19:30 Urine Urobilinogen 0.2 E.U./dL (0.2 - 1.0) 02/14/18 19:30 Ur Leukocyte Esterase NEGATIVE (NEGATIVE) 02/14/18 19:30 Urine RBC 2-5 /hpf (0-5) H 02/14/18 19:30 Urine WBC 0-2 /hpf (0-5) 02/14/18 19:30 Ur Epithelial Cells FEW /lpf (FEW) 02/14/18 19:30 Amorphous Sediment MODERATE URATES (NONE SEEN) 02/14/18 19:30 Urine Bacteria FEW /hpf (NONE SEEN) 02/14/18 19:30 - Physical Exam Vitals and I&O: Vital Signs Temp 97.2 F 02/16/18 04:00 Pulse 54 02/16/18 04:00 Resp 18 02/16/18 04:00 BP 131/87 02/16/18 04:00 Pulse Ox 97 02/16/18 04:00 Intake & Output 02/15/18 02/16/18 02/16/18 18:59 06:59 18:59 Intake Total 250 1200 Balance 250 1200 Weight (lbs) 92.986 kg 93.071 kg Intake: Intake, IV Amount 250 1200 D5-0.45NS 1,000 ml @ 50 1000 mls/hr IV .Q20H [facility] Rx#: [id number] Piperacillin Sodium/ 50 100 Tazobact 3.375 gm In Sodium Chloride 0.9% 50 ml @ 100 mls/hr IV Q8HR [facility] Rx#:[id number] metroNIDAZOLE 500mg/NS 200 100 100mL 500 mg In 100 ml @ 100 mls/hr IV Q8HR [facility] Rx #:[id number] Other: # Voids 3 3 # Bowel Movements 0 0 Stool Characteristics Formed Weight Source Bedscale Bedscale Active Medications: Current Medications Dextrose/Sodium Chloride (D5-0.45ns) 1,000 mls @ 50 mls/hr IV .Q20H [facility] Stop: 04/16/18 01:14 Last Admin: 02/16/18 01:35 Dose: 50 mls/hr Metronidazole (Flagyl) 500 mg in 100 mls @ 100 mls/hr IV Q8HR [facility] Stop: 04/16/18 04:59 Last Admin: 02/16/18 05:14 Dose: 100 mls/hr Piperacillin Sod/Tazobactam (Sod 3.375 gm/ Sodium Chloride) 50 mls @ 100 mls/ hr IV Q8HR [facility] Stop: 04/16/18 04:59 Last Infusion: 02/16/18 05:15 Dose: Infused Morphine Sulfate (Morphine) 2 mg IVP Q6HR PRN PRN Reason: Pain (Severe) 8-10 Stop: 04/16/18 00:54 Last Admin: 02/15/18 12:16 Dose: 2 mg Ondansetron HCl (Zofran) 4 mg IV Q6H PRN PRN Reason: Nausea / Vomiting Stop: 04/16/18 00:54 General: Alert, Oriented x3, No acute distress HEENT: Atraumatic, PERRLA, EOMI Neck: Supple, no JVD Cardiovascular: Regular rate, Normal S1, Normal S2 Lungs: Clear to auscultation Abdomen: Bowel sounds Extremities: no Clubbing, no Cyanosis, no Edema Assessment/Plan - Assessment Assessment: LLQ abdominal pain Diverticulitis possible abscess to the sigmoid region dysuria, frequency....will order UA, urinary retention ... will order Flomax, Abd U/S, and Urology consult - Plan Plan: GI consult General Surgery consult Continue IV antibiotics and IV antibiotics. on clear liquids MS PRN Zofran PRN
--- NOTE | 2018-02-16 10:04 | Diagnostic Imaging Report ---
Abdominal ultrasound HISTORY: Pain The liver appears enlarged. There is an increase in hepatic parenchymal echogenicity. The findings may be associated with fatty infiltration and should be correlated with liver function tests. The gallbladder appears dilated. No intraluminal abnormalities. Specifically, no definite calculi identified. No biliary dilatation. Pancreas is not well seen due to bowel gas. The kidneys appear normal bilaterally. The spleen is normal in size. No other retroperitoneal or intra-abdominal abnormalities. IMPRESSION: 1. Hepatomegaly along with parenchymal changes that may reflect fatty infiltration. The findings should be correlated with liver function tests 2. No other acute abnormalities
--- NOTE | 2018-02-16 16:48 | GI Progress Note ---
Subjective - Review of Systems Service Date: 02/16/18 Subjective: EVENTS NOTED. [facility] CLEAR LIQUIDS. NO ABD PAIN TODAY. Objective - Results Result Diagrams: 02/16/18 05:50 02/16/18 05:50 Recent Labs: Laboratory Last Values WBC 10.2 Th/cmm (4.8-10.8) 02/16/18 05:50 RBC 4.43 Mil/cmm (4.30-5.70) 02/16/18 05:50 Hgb 12.7 gm/dL (12-16) 02/16/18 05:50 Hct 38.2 % (41.0-60) L 02/16/18 05:50 MCV 86.1 fl (80-99) 02/16/18 05:50 MCH 28.6 pg (26.0-30.0) 02/16/18 05:50 MCHC Differential 33.2 pg (28.0-36.0) 02/16/18 05:50 RDW 12.3 % (11.5-20.0) 02/16/18 05:50 Plt Count 305 Th/cmm (150-400) 02/16/18 05:50 MPV 7.4 fl 02/16/18 05:50 Neutrophils % 76.0 % (40.0-80.0) 02/16/18 05:50 Lymphocytes % 13.6 % (20.0-50.0) L 02/16/18 05:50 Monocytes % 8.4 % (2.0-10.0) 02/16/18 05:50 Eosinophils % 1.3 % (0.0-5.0) 02/16/18 05:50 Basophils % 0.7 % (0.0-2.0) 02/16/18 05:50 PT 10.3 SECONDS (9.5-11.5) 02/14/18 19:30 INR 0.99 (0.5-1.4) 02/14/18 19:30 PTT (Actin FS) 31.2 SECONDS (26.0-38.0) 02/14/18 19:30 Sodium 136 mEq/L (136-145) 02/16/18 05:50 Potassium 3.6 mEq/L (3.5-5.1) 02/16/18 05:50 Chloride 103 mEq/L (98-107) 02/16/18 05:50 Carbon Dioxide 24.9 mEq/L (21.0-31.0) 02/16/18 05:50 Anion Gap 11.7 (7.0-16.0) 02/16/18 05:50 BUN 15 mg/dL (7-25) 02/16/18 05:50 Creatinine 0.9 mg/dL (0.7-1.3) 02/16/18 05:50 Est GFR ( Amer) > 60.0 ml/min (>90) 02/16/18 05:50 Est GFR (Non-Af Amer) > 60.0 ml/min 02/16/18 05:50 BUN/Creatinine Ratio 16.7 02/16/18 05:50 Glucose 109 mg/dL (70-105) H 02/16/18 05:50 POC Glucose 103 MG/DL (70 - 105) 02/15/18 00:58 Whole Bld Lactic Acid 0.53 mmol/L (0.60-1.99) L 02/14/18 19:30 Calcium 8.9 mg/dL (8.6-10.3) 02/16/18 05:50 Total Bilirubin 0.8 mg/dL (0.3-1.0) 02/15/18 05:48 AST 20 U/L (13-39) 02/15/18 05:48 ALT 32 U/L (7-52) 02/15/18 05:48 Alkaline Phosphatase 79 U/L (34-104) 02/15/18 05:48 Total Protein 6.3 gm/dL (6.0-8.3) 02/15/18 05:48 Albumin 3.6 gm/dL (4.2-5.5) L 02/15/18 05:48 Globulin 2.7 gm/dL 02/15/18 05:48 Albumin/Globulin Ratio 1.3 (1.0-1.8) 02/15/18 05:48 Amylase 50 U/L (29-103) 02/14/18 20:07 Lipase 24 U/L (11-82) 02/14/18 20:07 Urine Source CLEAN C 02/14/18 19:30 Urine Color YELLOW 02/14/18 19:30 Urine Clarity CLEAR (CLEAR) 02/14/18 19:30 Urine pH 6.0 (4.6 - 8.0) 02/14/18 19:30 Ur Specific [place] >= 1.030 (1.005-1.030) 02/14/18 19:30 Urine Protein TRACE mg/dL (NEGATIVE) 02/14/18 19:30 Urine Glucose (UA) NEGATIVE mg/dL (NEGATIVE) 02/14/18 19:30 Urine Ketones TRACE mg/dL (NEGATIVE) 02/14/18 19:30 Urine Blood TRACE (NEGATIVE) 02/14/18 19:30 Urine Nitrate NEGATIVE (NEGATIVE) 02/14/18 19:30 Urine Bilirubin SMALL (NEGATIVE) H 02/14/18 19:30 Urine Urobilinogen 0.2 E.U./dL (0.2 - 1.0) 02/14/18 19:30 Ur Leukocyte Esterase NEGATIVE (NEGATIVE) 02/14/18 19:30 Urine RBC 2-5 /hpf (0-5) H 02/14/18 19:30 Urine WBC 0-2 /hpf (0-5) 02/14/18 19:30 Ur Epithelial Cells FEW /lpf (FEW) 02/14/18 19:30 Amorphous Sediment MODERATE URATES (NONE SEEN) 02/14/18 19:30 Urine Bacteria FEW /hpf (NONE SEEN) 02/14/18 19:30 - Physical Exam Vitals and I&O: Vital Signs Temp 98.0 F 02/16/18 12:00 Pulse 56 02/16/18 12:00 Resp 18 02/16/18 12:00 BP 116/73 02/16/18 12:00 Pulse Ox 98 02/16/18 12:00 Intake & Output 02/15/18 02/16/18 02/16/18 18:59 06:59 18:59 Intake Total 250 1300 Balance 250 1300 Weight (lbs) 92.986 kg 93.071 kg 93.071 kg Intake: Intake, IV Amount 250 1300 D5-0.45NS 1,000 ml @ 50 1000 mls/hr IV .Q20H [facility] Rx#: [id number] Piperacillin Sodium/ 50 100 Tazobact 3.375 gm In Sodium Chloride 0.9% 50 ml @ 100 mls/hr IV Q8HR [facility] Rx#:[id number] metroNIDAZOLE 500mg/NS 200 200 100mL 500 mg In 100 ml @ 100 mls/hr IV Q8HR [facility] Rx #:[id number] Other: # Voids 3 3 # Bowel Movements 0 0 Stool Characteristics Formed Formed Weight Source Bedscale Bedscale Bedscale Active Medications: Current Medications Dextrose/Sodium Chloride (D5-0.45ns) 1,000 mls @ 50 mls/hr IV .Q20H [facility] Stop: 04/16/18 01:14 Last Admin: 02/16/18 01:35 Dose: 50 mls/hr Metronidazole (Flagyl) 500 mg in 100 mls @ 100 mls/hr IV Q8HR [facility] Stop: 04/16/18 04:59 Last Admin: 02/16/18 12:39 Dose: 100 mls/hr Piperacillin Sod/Tazobactam (Sod 3.375 gm/ Sodium Chloride) 50 mls @ 100 mls/ hr IV Q8HR [facility] Stop: 04/16/18 04:59 Last Admin: 02/16/18 13:46 Dose: 100 mls/hr Morphine Sulfate (Morphine) 2 mg IVP Q6HR PRN PRN Reason: Pain (Severe) 8-10 Stop: 04/16/18 00:54 Last Admin: 02/15/18 12:16 Dose: 2 mg Ondansetron HCl (Zofran) 4 mg IV Q6H PRN PRN Reason: Nausea / Vomiting Stop: 04/16/18 00:54 Tamsulosin HCl (Flomax) 0.4 mg PO DAILY [facility] Stop: 04/17/18 08:59 Last Admin: 02/16/18 10:39 Dose: 0.4 mg General: Alert, Oriented x3, No acute distress HEENT: Atraumatic Neck: Supple, JVD Cardiovascular: Regular rate Lungs: Clear to auscultation Abdomen: Bowel sounds, Soft, no Tender, no Distended Extremities: no Clubbing, no Cyanosis, no Edema Assessment/Plan - Assessment Assessment: IMPRESSION: 1. ACUTE DIVERTICULITIS WITH POSSIBLE SMALL ABSCESS, NOW IMPROVED WITH IV ABX. 2. LEUKOCYTOSIS. RECS: 1. IV ABX. 2. SLOWLY ADVANCE DIET [facility]. 3. MONITOR LABS. 4. OUTPT COLONOSCOPY IN 4-6 WEEKS. 5. SURGICAL F/U IN CASE SURGERY NEEDED.
[2018-02-17] MEDS: D5-0.45NS 1,000 ML IV SCH (02:55)
[2018-02-17] MEDS: metroNIDAZOLE 500mg/NS 100mL 500 MG/100 ML BAG IV SCH (05:16)
[2018-02-17 06:37] LABS: % EOSINOPHILS 1.5 % (0.0-5.0); EOSINOPHILE ABSOLUTE 0.1 Th/cmm (0.1-0.4); MEAN CORPUSCULAR HEMOGLOBIN 28.7 pg (26.0-30.0); MONOCYTE ABSOLUTE 0.9 Th/cmm (0.3-1.0)
[2018-02-17 06:42] LABS: % BASOPHILS 0.4 % (0.0-2.0); % LYMPHOCYTES 14.5 % (20.0-50.0); % MONOCYTES 9.7 % (2.0-10.0); % NEUTROPHILS 73.9 % (40.0-80.0); HEMATOCRIT 36.6 % (41.0-60); HEMOGLOBIN 12.2 gm/dL (12-16); LYMPHOCYTE ABSOLUTE 1.3 Th/cmm (1.5-3.0); MEAN CELL VOLUME 86.6 fl (80-99); MEAN CORPUSCULAR HGB CONC 33.2 pg (28.0-36.0); MEAN PLATELET VOLUME 7.3 fl; PLATELET COUNT 305 Th/cmm (150-400); RED BLOOD COUNT 4.23 Mil/cmm (4.30-5.70); RED CELL DISTRIBUTION WIDTH 12.3 % (11.5-20.0); WHITE BLOOD COUNT 9.3 Th/cmm (4.8-10.8)
[2018-02-17 06:46] LABS: ALB/GLOB RATIO 1.3 (1.0-1.8); ALBUMIN 3.4 gm/dL (4.2-5.5); ALKALINE PHOSPHATASE 75 U/L (34-104); ANION GAP 11.2 (7.0-16.0); BILIRUBIN,TOTAL 0.8 mg/dL (0.3-1.0); BUN - UREA NITROGEN 12 mg/dL (7-25); CALCIUM SERUM 8.9 mg/dL (8.6-10.3); CARBON DIOXIDE 24.5 mEq/L (21.0-31.0); CHLORIDE 105 mEq/L (98-107); CREATININE - SERUM 0.9 mg/dL (0.7-1.3); GFR AFRICAN-AMERICAN > 60.0 ml/min (>90); GFR NON AFRICAN-AMERICAN > 60.0 ml/min; GLUCOSE 109 mg/dL (70-105); POTASSIUM SERUM 3.7 mEq/L (3.5-5.1); SGOT 22 U/L (13-39); SGPT/ALT 28 U/L (7-52); SODIUM SERUM 137 mEq/L (136-145); TOTAL PROTEIN,SERUM 6.1 gm/dL (6.0-8.3)
[2018-02-17 07:00] LABS: URINE SOURCE CLEAN C
[2018-02-17 07:05] LABS: URINE BILIRUBIN NEGATIVE (NEGATIVE); URINE BLOOD NEGATIVE (NEGATIVE); URINE GLUCOSE (UA) NEGATIVE (NEGATIVE); URINE KETONE NEGATIVE (NEGATIVE); URINE LEUKOCYTE ESTERASE NEGATIVE (NEGATIVE); URINE NITRATE NEGATIVE (NEGATIVE); URINE PH 7.5 (4.6 - 8.0); URINE PROTEIN NEGATIVE (NEGATIVE)
[2018-02-17 07:13] LABS: URINE CLARITY HAZY (CLEAR); URINE COLOR YELLOW; URINE MICROSCOPIC INDICATED? YES
[2018-02-17 07:24] LABS: URINE BACTERIA NONE SEEN /hpf (NONE SEEN); URINE EPITHELIAL CELLS NONE SEEN /lpf (FEW); URINE RBC 0-2 /hpf (0-5); URINE WBC 0-2 /hpf (0-5)
[2018-02-17 07:25] LABS: URINE AMORPHOUS SEDIMENT MODERATE PHOSPHATES (NONE SEEN)
--- NOTE | 2018-02-17 08:14 | General Progress Note ---
Subjective - Review of Systems Service Date: 02/17/18 Subjective: Patient feeling better. abdominal pain improved from yesterday. Currently on clear liquids and tolerating diet. Patient complains of urinary frequency and urgency. Objective - Results Result Diagrams: 02/17/18 05:55 02/17/18 05:55 Recent Labs: Laboratory Last Values WBC 9.3 Th/cmm (4.8-10.8) 02/17/18 05:55 RBC 4.23 Mil/cmm (4.30-5.70) L 02/17/18 05:55 Hgb 12.2 gm/dL (12-16) 02/17/18 05:55 Hct 36.6 % (41.0-60) L 02/17/18 05:55 MCV 86.6 fl (80-99) 02/17/18 05:55 MCH 28.7 pg (26.0-30.0) 02/17/18 05:55 MCHC Differential 33.2 pg (28.0-36.0) 02/17/18 05:55 RDW 12.3 % (11.5-20.0) 02/17/18 05:55 Plt Count 305 Th/cmm (150-400) 02/17/18 05:55 MPV 7.3 fl 02/17/18 05:55 Neutrophils % 73.9 % (40.0-80.0) 02/17/18 05:55 Lymphocytes % 14.5 % (20.0-50.0) L 02/17/18 05:55 Monocytes % 9.7 % (2.0-10.0) 02/17/18 05:55 Eosinophils % 1.5 % (0.0-5.0) 02/17/18 05:55 Basophils % 0.4 % (0.0-2.0) 02/17/18 05:55 PT 10.3 SECONDS (9.5-11.5) 02/14/18 19:30 INR 0.99 (0.5-1.4) 02/14/18 19:30 PTT (Actin FS) 31.2 SECONDS (26.0-38.0) 02/14/18 19:30 Sodium 137 mEq/L (136-145) 02/17/18 05:55 Potassium 3.7 mEq/L (3.5-5.1) 02/17/18 05:55 Chloride 105 mEq/L (98-107) 02/17/18 05:55 Carbon Dioxide 24.5 mEq/L (21.0-31.0) 02/17/18 05:55 Anion Gap 11.2 (7.0-16.0) 02/17/18 05:55 BUN 12 mg/dL (7-25) 02/17/18 05:55 Creatinine 0.9 mg/dL (0.7-1.3) 02/17/18 05:55 Est GFR ( Amer) > 60.0 ml/min (>90) 02/17/18 05:55 Est GFR (Non-Af Amer) > 60.0 ml/min 02/17/18 05:55 BUN/Creatinine Ratio 13.3 02/17/18 05:55 Glucose 109 mg/dL (70-105) H 02/17/18 05:55 POC Glucose 103 MG/DL (70 - 105) 02/15/18 00:58 Whole Bld Lactic Acid 0.53 mmol/L (0.60-1.99) L 02/14/18 19:30 Calcium 8.9 mg/dL (8.6-10.3) 02/17/18 05:55 Total Bilirubin 0.8 mg/dL (0.3-1.0) 02/17/18 05:55 AST 22 U/L (13-39) 02/17/18 05:55 ALT 28 U/L (7-52) 02/17/18 05:55 Alkaline Phosphatase 75 U/L (34-104) 02/17/18 05:55 Total Protein 6.1 gm/dL (6.0-8.3) 02/17/18 05:55 Albumin 3.4 gm/dL (4.2-5.5) L 02/17/18 05:55 Globulin 2.7 gm/dL 02/17/18 05:55 Albumin/Globulin Ratio 1.3 (1.0-1.8) 02/17/18 05:55 Amylase 50 U/L (29-103) 02/14/18 20:07 Lipase 24 U/L (11-82) 02/14/18 20:07 Urine Source CLEAN C 02/17/18 06:30 Urine Color YELLOW 02/17/18 06:30 Urine Clarity HAZY (CLEAR) 02/17/18 06:30 Urine pH 7.5 (4.6 - 8.0) 02/17/18 06:30 Ur Specific [place] 1.010 (1.005-1.030) 02/17/18 06:30 Urine Protein NEGATIVE mg/dL (NEGATIVE) 02/17/18 06:30 Urine Glucose (UA) NEGATIVE mg/dL (NEGATIVE) 02/17/18 06:30 Urine Ketones NEGATIVE mg/dL (NEGATIVE) 02/17/18 06:30 Urine Blood NEGATIVE (NEGATIVE) 02/17/18 06:30 Urine Nitrate NEGATIVE (NEGATIVE) 02/17/18 06:30 Urine Bilirubin NEGATIVE (NEGATIVE) 02/17/18 06:30 Urine Urobilinogen 1.0 E.U./dL (0.2 - 1.0) 02/17/18 06:30 Ur Leukocyte Esterase NEGATIVE (NEGATIVE) 02/17/18 06:30 Urine RBC 0-2 /hpf (0-5) H 02/17/18 06:30 Urine WBC 0-2 /hpf (0-5) 02/17/18 06:30 Ur Epithelial Cells NONE SEEN /lpf (FEW) 02/17/18 06:30 Amorphous Sediment MODERATE PHOSPHATES (NONE SEEN) 02/17/18 06:30 Urine Bacteria NONE SEEN /hpf (NONE SEEN) 02/17/18 06:30 - Physical Exam Vitals and I&O: Vital Signs Temp 98.3 F 02/17/18 08:02 Pulse 57 02/17/18 08:02 Resp 18 02/17/18 08:02 BP 111/80 02/17/18 08:02 Pulse Ox 98 02/17/18 08:02 Intake & Output 02/16/18 02/17/18 02/17/18 18:59 06:59 18:59 Intake Total 630 1200 Balance 630 1200 Weight (lbs) 93.071 kg 86.183 kg 93.44 kg Intake: Intake, IV Amount 150 1200 D5-0.45NS 1,000 ml @ 50 1000 mls/hr IV .Q20H JOSE F Rx#: [id number] Piperacillin Sodium/ 50 100 Tazobact 3.375 gm In Sodium Chloride 0.9% 50 ml @ 100 mls/hr IV Q8HR JOSE F Rx#:[id number] metroNIDAZOLE 500mg/NS 100 100 100mL 500 mg In 100 ml @ 100 mls/hr IV Q8HR [facility] Rx #:[id number] Oral 480 Other: # Voids 3 # Bowel Movements 0 Stool Characteristics Formed Formed Weight Source Bedscale Estimated Bedscale Active Medications: Current Medications Dextrose/Sodium Chloride (D5-0.45ns) 1,000 mls @ 50 mls/hr IV .Q20H [facility] Stop: 04/16/18 01:14 Last Admin: 02/17/18 02:55 Dose: 50 mls/hr Metronidazole (Flagyl) 500 mg in 100 mls @ 100 mls/hr IV Q8HR [facility] Stop: 04/16/18 04:59 Last Admin: 02/17/18 05:16 Dose: 100 mls/hr Piperacillin Sod/Tazobactam (Sod 3.375 gm/ Sodium Chloride) 50 mls @ 100 mls/ hr IV Q8HR [facility] Stop: 04/16/18 04:59 Last Infusion: 02/17/18 05:05 Dose: Infused Morphine Sulfate (Morphine) 2 mg IVP Q6HR PRN PRN Reason: Pain (Severe) 8-10 Stop: 04/16/18 00:54 Last Admin: 02/15/18 12:16 Dose: 2 mg Ondansetron HCl (Zofran) 4 mg IV Q6H PRN PRN Reason: Nausea / Vomiting Stop: 04/16/18 00:54 Tamsulosin HCl (Flomax) 0.4 mg PO DAILY [facility] Stop: 04/17/18 08:59 Last Admin: 02/16/18 10:39 Dose: 0.4 mg General: Alert, Oriented x3, No acute distress HEENT: Atraumatic Neck: Supple, JVD Cardiovascular: Regular rate Lungs: Clear to auscultation Abdomen: Bowel sounds, Soft, no Tender, no Distended Extremities: no Clubbing, no Cyanosis, no Edema Assessment/Plan - Assessment Assessment: LLQ abdominal pain Diverticulitis possible abscess to the sigmoid region dysuria, frequency....will order UA, urinary retention ... will order Flomax, Abd U/S, outpatient urology f/u - Plan Plan: GI consult General Surgery consult Continue IV antibiotics and IV antibiotics. on clear liquids MS PRN Zofran PRN
--- NOTE | 2018-02-26 06:28 | Discharge Summary ---
DATE OF DISCHARGE: 02/17/2018 PRELIMINARY DIAGNOSES: 1. Left lower quadrant abdominal pain. 2. Diverticulosis. 3. Possible abscess to the sigmoid region. DISCHARGE DIAGNOSES: 1. Left lower quadrant abdominal pain, now resolved. 2. Diverticulitis, improved. BRIEF HISTORY OF PRESENT ILLNESS: This is a 57-year-old male, who presents to [facility] ER with left lower quadrant abdominal pain for the past 3 weeks. The patient underwent a CT of his abdomen and pelvis, which revealed evidence of diverticulitis and possible abscess formation to the sigmoid colon. The patient was subsequently admitted for continued care and treatment. The patient states that the pain had been off and on for the past 3 weeks; had recently seen his primary care physician, who had given him oral antibiotics, which did not improve his pain. Two days prior to admission, the patient states that the pain was increasing and had worsened, but he denies any fever, nausea, vomiting, diarrhea or bloody stools. The patient was subsequently admitted for IV antibiotics and to rule out for possible abscess of the sigmoid region. HOSPITAL COURSE: The patient improved during his hospital stay, was started on IV antibiotics, had been seen and evaluated by General Surgery, please see dictated report and was also seen by GI, see dictated report. The patient's diet initially was n.p.o., given IV fluids initially with continued improvement. His diet had been advanced to clear liquids, full liquids and subsequently advanced further to a soft diet. The patient was then discharged and was advised to follow up with his regular physician in 2-3 days. The patient was given a course of oral antibiotics and advised to avoid any foods that have nuts or seeds. [facility]# [id number]
== END 2018-02-17 11:02 | disposition home or self-care (01) | DRG 392 ==
LOC: ER 19:08 → MSI 23:15
PROVIDERS: ADMIT Family Medicine; ATTEND Family Medicine
DX: K57.20 Diverticulitis of large intestine with perforation and abscess without bleeding (principal); I10 Essential (primary) hypertension; E78.5 Hyperlipidemia, unspecified; R30.0 Dysuria; R33.9 Retention of urine, unspecified
CPT/HCPCS: 36415-UA; 76700-TC; 80048-TC; 80053-TC; 81001-TC; 82150-TC; 82948-90; 83605; 83690-TC; 85025-TC; 85610-TC; 90799; 93005; J2270; J2543; Q9967; Z7610